=== PATIENT | female | born 1980 | race Caucasian/White ===

== ENCOUNTER 2017-06-18 19:28 | Emergency (ER) | payer SELFPAY ==
[~2017-06-18] VITALS: Ht 157.5 cm; Wt 81.6 kg
--- NOTE | 2017-06-18 19:36 | NUR ---
BBRA; BACK PAIN COUGH X 3 DAYS. PT AOX3 RR EVEN AND UNLABORED. NO SOB NOTED. NAD NOTED. NO NVD AT THIS TIME. PT GOWNED AND PLACED ON MONITOR WAITING FOR MD GREENE. PT NOT DIAPHORETIC.
--- NOTE | 2017-06-18 19:50 | NUR ---
CITLALY RICO AT BEDSIDE FOR EVAL.
[2017-06-18] MEDS ORDERED: KETOROLAC TROMETHAMINE INJ 60 MG/2 ML VIAL IM ONE (20:16)
[2017-06-18] MEDS: KETOROLAC TROMETHAMINE INJ 60 MG/2 ML VIAL IM ONE (20:20)
--- NOTE | 2017-06-18 20:35 | NUR ---
Glenys mcnally in [facility] - 06/18/17 at 2046 by ELIZABET STEVE AT BEDSIDE
[2017-06-18] MEDS ORDERED: CYCLOBENZAPRINE 10 MG TABLET ONE (20:39)
[2017-06-18] MEDS: CYCLOBENZAPRINE 10 MG TABLET PO ONE (20:42)
[2017-06-18] MEDS ORDERED: ONDANSETRON 4 MG TAB.RAPDIS ONE (20:49)
[2017-06-18] MEDS: ONDANSETRON 4 MG TAB.RAPDIS PO ONE (20:59)
[2017-06-18 21:20] LABS: APPEARANCE,URINE Clear (CLEAR); BILIRUBIN,URINE Negative (NEGATIVE); BLOOD, URINE Negative Ery/uL (NEGATIVE); COLOR,URINE Yellow (YELLOW); KETONES,URINE Negative (NEGATIVE); LEUKOCYTE ESTERASE ,URINE Negative (NEGATIVE); NITRITE, URINE Negative (NEGATIVE); PROTEIN,URINE Negative (NEGATIVE); UGLUCOSE Negative (NEGATIVE); UROBILINOGEN,URINE 0.2 EU/dL (0.2)
--- NOTE | 2017-06-18 21:52 | NUR ---
D/C INSTRUCTIONS/MEDICATIONS GIVEN AND EXPALINED. PT AGREED WITH CARE
[2017-06-18 21:53] VITALS: BP 150/81
== END 2017-06-18 21:54 | disposition home or self-care (01) ==
LOC: ER 19:29
DX: M54.5 Low back pain (principal); J45.909 Unspecified asthma, uncomplicated
CPT/HCPCS: 81001; 84703; 96372; 99283; A4606; J1885; Q0162; Z7610; 81000-TC